=== PATIENT | female | born 1940 | race Caucasian/White ===

== ENCOUNTER → 2019-10-03 17:32 | Outpatient (CLI) | payer MEDICARE, OTHER, SELFPAY ==
[2019-10-03 19:26] LABS: Chloride 102 mmol/L (98-107); Potassium 4.2 mmoL/L (3.5-5.1); Sodium 135 mmol/L (136-145)
[2019-10-03 19:28] LABS: Alanine Aminotransferase 10 U/L (12-78); Aspartate Amino Transferase 26 U/L (14-36); Blood Urea Nitrogen 17 mg/dl (7-17); Estimated Glomerular Filt Rate 43 ml/min (>60); GFR (African American) 53 ML/MIN (>60)
[2019-10-03 19:29] LABS: Albumin Level 3.2 g/dl (3.5-5.0); Albumin/Globulin Ratio 0.9 (1.1-1.8); Alkaline Phosphatase 169 U/L (38-126); Anion Gap 13.2 mEq/L (5-15); Calcium 8.6 mg/dl (8.4-10.2); Carbon Dioxide 24 mmol/L (22.0-30.0); Globulin 3.6 g/dL (1.3-3.2); Glucose 173 mg/dl (74-100); Total Protein,Serum 6.8 g/dl (6.3-8.2)
[2019-10-03 19:47] LABS: T4 (Thyroxine) 10.1 ug/dl (5.53-11.0)
[2019-10-03 19:54] LABS: Hemoglobin A1C 8.6 % (4.0-6.0)
[2019-10-03 20:00] LABS: Thyroid Stimulating Hormone 6.45 uIU/mL (0.465-4.68)
== END ==
PROVIDERS: Visit Provider Family Medicine
DX: I48.91 Unspecified atrial fibrillation (principal); E11.9 Type 2 diabetes mellitus without complications; Z79.4 Long term (current) use of insulin
CPT/HCPCS: 80053; 83036; 84436; 84443

== ENCOUNTER → 2019-10-18 15:45 | Outpatient (CLI) | payer MEDICARE, OTHER, SELFPAY ==
[2019-10-18 15:51] LABS: Chloride 99 mmol/L (98-107); Sodium 136 mmol/L (136-145)
[2019-10-18 15:52] LABS: Potassium 3.9 mmoL/L (3.5-5.1)
[2019-10-18 15:54] LABS: Alanine Aminotransferase 9 U/L (12-78); Albumin Level 3.2 g/dl (3.5-5.0); Albumin/Globulin Ratio 0.9 (1.1-1.8); Alkaline Phosphatase 203 U/L (38-126); Anion Gap 11.9 mEq/L (5-15); Aspartate Amino Transferase 29 U/L (14-36); Bilirubin,Total 1.8 mg/dl (0.2-1.3); Blood Urea Nitrogen 22 mg/dl (7-17); Carbon Dioxide 29 mmol/L (22.0-30.0); Estimated Glomerular Filt Rate 43 ml/min (>60); GFR (African American) 53 ML/MIN (>60); Globulin 3.5 g/dL (1.3-3.2); Total Protein,Serum 6.7 g/dl (6.3-8.2)
[2019-10-18 15:55] LABS: Calcium 8.9 mg/dl (8.4-10.2); Glucose 231 mg/dl (74-100)
== END ==
PROVIDERS: Visit Provider Family Medicine
DX: E03.9 Hypothyroidism, unspecified (principal)
CPT/HCPCS: 80053

== ENCOUNTER 2020-03-13 16:11 | Inpatient (IN) | payer MEDICARE, OTHER, SELFPAY ==
[2020-03-13 16:26] VITALS: BP 144/93; PULSE 95; RESP 20; TEMP 36.8; O2SAT 96; BMI 36.1
[2020-03-13 16:54] VITALS: BP 116/65; PULSE 107; RESP 22; TEMP 36.2; O2SAT 95
[2020-03-13 17:54] LABS: Coronavirus 19 IgG Antibody Negative (Negative); Coronavirus 19 IgM Antibody Negative (Negative)
--- NOTE | 2020-03-13 17:55 | CT_ITS ---
PROCEDURE: CT ABDOMEN PELVIS W CON CLINICAL INDICATION: abdominal pain Left lower quadrant pain with diarrhea COMPARISON: No exams were available for comparison TECHNIQUE: IV Contrast: 75ML Isovue 370 Oral Contrast None Axial images obtained with sagittal and coronal reformats. All CT scans at the facility use one or more dose reduction, viz: automated exposure control, ma/kV adjustment per patient size (including targeted exams where dose is matched to indication, i.e. head), or iterative reconstruction technique. FINDINGS: LOWER THORAX: Dense consolidation collapse of left lower lobe. There is trace right-sided effusion and moderate left-sided effusion. Moderate-sized pericardial effusion noted with pericardium measuring to 2 cm. ABDOMEN & PELVIS: Shrunken liver with nodular contour with hypertrophy of the caudate lobe consistent with cirrhosis. Hepatic steatosis also noted. Moderate volume ascites. The adrenal glands, spleen, have an unremarkable appearance. Pancreas is atrophic. There is a left renal cyst measuring 3.7 cm. Cortical thinning involving both kidneys. There are some small retroperitoneal lymph nodes. Prior cholecystectomy There is thickening of the ascending and transverse colon. No evidence of appendicitis or diverticulitis. The uterus and ovaries are atrophic. There is diffuse subcutaneous edema. No acute bony findings. IMPRESSION: 1. Cirrhosis with a nodular shrunken liver, hypertrophy of the caudate lobe, and moderate volume ascites. 2. Small right pleural effusion and moderate-sized left pleural effusion with left lower lobe consolidation/volume loss. 3. Pericardial effusion. 4. Diffuse anasarca. 5. Diffuse colonic wall thickening of the ascending and transverse colon which could be due to hypoalbuminemia versus colitis. Dictated by: Vasile Zamora MD 03/14/2020 07:31 Vasile Zamora MD in [facility] 03/14/2020 07:31
--- NOTE | 2020-03-13 18:18 | XR_ITS ---
PROCEDURE: XR CHEST 2V CLINICAL HISTORY: chf Congestive heart failure, smoker COMPARISON: No exams were available for comparison FINDINGS: There is moderate cardiomegaly without failure. There is a small left pleural effusion and trace right effusion. No lobar consolidation or collapse. COPD. No acute bony abnormalities. IMPRESSION: The cardiomegaly with bilateral pleural effusions left larger than right with COPD Dictated by: Vasile Zamora MD 03/14/2020 06:30 Vasile Zamora MD in [facility] 03/14/2020 06:30
[2020-03-13 19:16] LABS: Basophils # 0.1 K/mm3 (0-0.2); Basophils % 0.8 % (0.1-2.0); Eosinophils # 0.2 K/mm3 (0.0-0.4); Eosinophils % 2.7 % (0.1-12.0); Hematocrit 42.3 % (37.0-47.0); Hemoglobin 13.3 g/dL (12.2-16.2); Lymphocytes # 0.9 K/mm3 (0.7-4.5); Lymphocytes % 14.1 % (10-50); Mean Corpuscular HGB Conc 31.5 g/dL (31.8-35.4); Mean Corpuscular Hemoglobin 28.2 pg (27.0-31.2); Mean Corpuscular Volume 89.5 fl (81-99); Mean Platelet Volume 8.1 fl (7.4-10.4); Monocytes # 0.7 K/mm3 (0.1-1.0); Monocytes % 10.6 % (1.7-9.3); Neutrophils # 4.6 K/mm3 (1.8-7.8); Neutrophils % 71.9 % (37.0-80.0); Platelet Count 230 K/mm3 (142-424); Red Blood Count 4.73 M/mm3 (4.20-5.40); Red Cell Distribution Width 17.9 % (11.5-17.5); White Blood Count 6.4 K/mm3 (4.8-10.8)
[2020-03-13 19:24] LABS: Ammonia < 9 umol/L (9-30)
[2020-03-13 19:25] LABS: Alanine Aminotransferase 13 U/L (12-78); Albumin Level 3.1 g/dl (3.5-5.0); Albumin/Globulin Ratio 0.7 (1.1-1.8); Alkaline Phosphatase 154 U/L (38-126); Anion Gap 10.8 mEq/L (5-15); Aspartate Amino Transferase 30 U/L (14-36); Bilirubin,Total 3.7 mg/dl (0.2-1.3); Blood Urea Nitrogen 18 mg/dl (7-17); Calcium 8.5 mg/dl (8.4-10.2); Carbon Dioxide 29 mmol/L (22.0-30.0); Chloride 98 mmol/L (98-107); Creatinine Clearance Estimated 66 mL/min (50-200); Estimated Glomerular Filt Rate 61 ml/min (>60); GFR (African American) 73 ML/MIN (>60); Globulin 4.3 g/dL (1.3-3.2); Glucose 120 mg/dl (74-100); Sodium 135 mmol/L (136-145); Total Protein,Serum 7.4 g/dl (6.3-8.2)
[2020-03-13 19:26] LABS: Potassium 2.8 mmoL/L (3.5-5.1)
[2020-03-13 19:32] LABS: INR 1.42 (0.9-1.1); Prothrombin Time 15.3 seconds (9.4-11.8)
[2020-03-13 19:34] LABS: NT Pro Brain Natriuretic Pep. 3430 pg/mL (0-450)
[2020-03-13 19:41] LABS: Procalcitonin 0.138 ng/mL (0.0-2.0)
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
[2020-03-13 19:54] LABS: Lactic Acid 1.3 mmol/L (0.7-2.1)
[2020-03-13 20:00] VITALS: BP 132/88; PULSE 119; RESP 20; TEMP 36.7; O2SAT 99
[2020-03-14] VITALS (9 sets, daily range): BP systolic 113–130; BP diastolic 59–78; PULSE 65–120; RESP 18–22; TEMP 36.5–36.8; O2SAT 94–100; BMI 35.6
[2020-03-14 07:30] LABS: POC Glucose,Bedside 134 (70-110)
--- NOTE | 2020-03-14 07:50 | PC.NURSE ---
Addendum entered by Jennifer Pena RN 03/14/20 07:57: In addidtion, pt has had several incontinent light brown, loose stools this shift. Bowel sounds have been hypoactive in all 4 quads. Abdomen continues to be distended and tender. Original Note: Pt is A&Ox4. Lung sounds diminished t/o. +1 pitting edema noted to BLE. Pt did not tolerate IV K+ this shift and attempted to pull IV out, MD Bass notified. SEE PROVIDER NOTIFICATION. No other acute changes or complains at this time. Will continue to monitor.
[2020-03-14 09:01] LABS: Basophils # 0.1 K/mm3 (0-0.2); Eosinophils # 0.2 K/mm3 (0.0-0.4); Eosinophils % 3.5 % (0.1-12.0); Hemoglobin 13.7 g/dL (12.2-16.2); Lymphocytes # 0.7 K/mm3 (0.7-4.5); Lymphocytes % 14.9 % (10-50); Mean Corpuscular HGB Conc 31.9 g/dL (31.8-35.4); Mean Corpuscular Hemoglobin 29.1 pg (27.0-31.2); Mean Corpuscular Volume 91.2 fl (81-99); Mean Platelet Volume 8.6 fl (7.4-10.4); Monocytes # 0.5 K/mm3 (0.1-1.0); Monocytes % 10.7 % (1.7-9.3); Neutrophils # 3.4 K/mm3 (1.8-7.8); Platelet Count 247 K/mm3 (142-424); Red Blood Count 4.72 M/mm3 (4.20-5.40); Red Cell Distribution Width 18.2 % (11.5-17.5); White Blood Count 4.9 K/mm3 (4.8-10.8)
[2020-03-14 09:04] LABS: Chloride 100 mmol/L (98-107); Potassium 3.3 mmoL/L (3.5-5.1); Sodium 136 mmol/L (136-145)
[2020-03-14 09:06] LABS: Alanine Aminotransferase 11 U/L (12-78); Aspartate Amino Transferase 32 U/L (14-36); Blood Urea Nitrogen 16 mg/dl (7-17); Creatinine Clearance Estimated 64 mL/min (50-200); Estimated Glomerular Filt Rate 54 ml/min (>60); GFR (African American) 65 ML/MIN (>60)
[2020-03-14 09:07] LABS: Albumin Level 3.1 g/dl (3.5-5.0); Albumin/Globulin Ratio 0.7 (1.1-1.8); Alkaline Phosphatase 148 U/L (38-126); Anion Gap 11.3 mEq/L (5-15); Bilirubin,Total 2.5 mg/dl (0.2-1.3); Calcium 8.5 mg/dl (8.4-10.2); Carbon Dioxide 28 mmol/L (22.0-30.0); Globulin 4.2 g/dL (1.3-3.2); Glucose 150 mg/dl (74-100); Total Protein,Serum 7.3 g/dl (6.3-8.2)
[2020-03-14 11:52] LABS: POC Glucose,Bedside 168 (70-110)
--- NOTE | 2020-03-14 12:33 | HMH.PHAVTE ---
[facility] Pharm[facility] VTE Monitoring - Patient Demographics Admission date: 03/13/20 Report Date: 03/14/20 Time: 12:33 Allergies/Adverse Reactions: Patient Allergies ibuprofen Adverse Reaction (Severe, Verified 03/13/20 14:20) Vomiting Sulfa (Sulfonamide Antibiotics) Adverse Reaction (Severe, Verified 03/13/20 14:20) Vomiting tuberculin,PPD,multi-puncture Adverse Reaction (Verified 03/13/20 14:20) Vomiting Height: 1.57 m Weight: 88.025 kg Patient Problems: Current Active Problems Abdominal pain (Acute) Ascites (Acute) SIRS (systemic inflammatory response syndrome) (Acute) Sepsis with organ dysfunction (Acute) Diabetes (Acute) Hypokalemia (Acute) Diverticulosis (Acute) Congestive heart failure (Acute) Elevated bilirubin (Acute) COPD (chronic obstructive pulmonary disease) (Acute) Tobacco abuse (Acute) SBP (spontaneous bacterial peritonitis) (Acute) Incontinence (Acute) Edema due to congestive heart failure (Acute) Afib (Acute) - VTE Risk Labs: VTE Related Lab Results Hgb 13.7 g/dL (12.2-16.2) 03/14/20 08:30 Hct 43.0 % (37.0-47.0) 03/14/20 08:30 Plt Count 247 K/mm3 (142-424) 03/14/20 08:30 PT 15.3 seconds (9.4-11.8) H 03/13/20 18:28 INR 1.42 (0.9-1.1) H 03/13/20 18:28 BUN 16 mg/dl (7-17) 03/14/20 08:30 Creatinine 1.00 mg/dl (0.52-1.04) 03/14/20 08:30 Estimated Creat Clear 64 mL/min (50-200) 03/14/20 08:30 VTE Score: 6 VTE Risk Level: Moderate Risk - Prophylaxis VTE Prophylaxis Ordered?: Yes Types of VTE Prophylaxis: TEDS Knee High Location of Applied Device: Bilateral Lower Extremeties
--- NOTE | 2020-03-14 14:52 | HMH.ACPN2 ---
Internal Medicine - PN: Subj *Date: 03/14/20 *Time: 09:15 Interval history: pt sitting up on the side of the bed states no c/o Exam Vital signs and Labs for Last 24 Hours: Temp Pulse Resp BP Pulse Ox 97.7 F 111 H 19 130/78 97 03/14/20 12:00 03/14/20 12:00 03/14/20 12:00 03/14/20 12:00 03/14/20 12:00 Laboratory Results - last 24 hr 03/13/20 17:10: SARS-CoV-2 IgG Ab (Rapid) Negative, SARS-CoV-2 IgM Ab (Rapid) Negative 03/13/20 18:28: WBC 6.4, RBC 4.73, Hgb 13.3, Hct 42.3, MCV 89.5, MCH 28.2, MCHC 31.5 L, RDW 17.9 H, Plt Count 230, MPV 8.1, Neut % (Auto) 71.9, Lymph % (Auto) 14.1, [place] % (Auto) 10.6 H, Eos % (Auto) 2.7, Baso % (Auto) 0.8, Neut # (Auto) 4.6, Lymph # (Auto) 0.9, [place] # (Auto) 0.7, Eos # (Auto) 0.2, Baso # (Auto) 0.1 03/13/20 18:28: PT 15.3 H, INR 1.42 H 03/13/20 18:28: Sodium 135 L, Potassium 2.8 L*, Chloride 98, Carbon Dioxide 29, Anion Gap 10.8, BUN 18 H, Creatinine 0.90, Estimated Creat Clear 66, Estimated GFR 61, Est GFR ( Amer) 73, Glucose 120 H, Calcium 8.5, Total Bilirubin 3.7 H, AST 30, ALT 13, Alkaline Phosphatase 154 H, Total Protein 7.4, Albumin 3.1 L, Globulin 4.3 H, Albumin/Globulin Ratio 0.7 L 03/13/20 18:28: Ammonia < 9 L 03/13/20 18:28: Procalcitonin 0.138 03/13/20 18:28: NT-Pro-B Natriuret Pep 3430 H 03/13/20 19:35: Lactate 1.3 03/14/20 07:22: POC Glucose 134 H 12/05/20 08:30: WBC 4.9, RBC 4.72, Hgb 13.7, Hct 43.0, MCV 91.2, MCH 29.1, MCHC 31.9, RDW 18.2 H, Plt Count 247, MPV 8.6, Neut % (Auto) 70.0, Lymph % (Auto) 14.9, [place] % (Auto) 10.7 H, Eos % (Auto) 3.5, Baso % (Auto) 1.0, Neut # (Auto) 3.4, Lymph # (Auto) 0.7, [place] # (Auto) 0.5, Eos # (Auto) 0.2, Baso # (Auto) 0.1 03/14/20 08:30: Sodium 136, Potassium 3.3 L, Chloride 100, Carbon Dioxide 28, Anion Gap 11.3, BUN 16, Creatinine 1.00, Estimated Creat Clear 64, Estimated GFR 54 L, Est GFR ( Amer) 65, Glucose 150 H D, Calcium 8.5, Total Bilirubin 2.5 H, AST 32, ALT 11 L, Alkaline Phosphatase 148 H, Total Protein 7.3, Albumin 3.1 L, Globulin 4.2 H, Albumin/Globulin Ratio 0.7 L 03/14/20 11:37: POC Glucose 168 H I & O for Last 24 hours: Intake & Output 03/12/20 03/13/20 03/14/20 03/15/20 11:59 11:59 11:59 11:59 Intake Total 840 / 840 Output Total 500 / 500 Balance 840 / 340 -500 / -500 Weight 194 lb 1 oz - Constitutional no acute distress, obese, chronically ill appearing - *Routine HEENT Exam Head: Present: normocephalic Eye: Present: PERRL ENT: Present: mucous membranes moist - *Routine Neck Exam Present: supple. Absent: lymphadenopathy - *Routine Respiratory Exam Present: CTA bilaterally - *Routine Cardiovascular Exam Present: RRR - *Routine Abdominal Exam Present: soft, normoactive bowel sounds, tenderness, distended - *Routine Extremities Exam Absent: cyanosis, clubbing, edema - *Routine Skin Exam Present: warm. Absent: rash - *Routine Neurological Exam Present: alert, oriented X3 - Routine Psychiatric Exam Present: normal affect Assessment and Plan (1) Afib Status: Acute Qualifiers: Atrial fibrillation type: paroxysmal Qualified Code(s): I48.0 - Paroxysmal atrial fibrillation Category: Medical Code(s): I48.91 - Unspecified atrial fibrillation (2) Edema due to congestive heart failure Status: Acute Category: Medical Code(s): I50.9 - Heart failure, unspecified (3) Incontinence Status: Acute Category: Medical Code(s): R32 - Unspecified urinary incontinence (4) Abdominal pain Status: Acute Category: Medical Code(s): R10.9 - Unspecified abdominal pain (5) Ascites Status: Acute Category: Medical Code(s): R18.8 - Other ascites (6) SIRS (systemic inflammatory response syndrome) Status: Acute Category: Medical Code(s): R65.10 - Systemic inflammatory response syndrome (SIRS) of non-infectious origin without acute organ dysfunction (7) Sepsis with organ dysfunction Status: Acute Category: Medical Code(s): A41.9 - S
[2020-03-14 16:27] LABS: POC Glucose,Bedside 147 (70-110)
--- NOTE | 2020-03-14 16:59 | HMH.PHAINT ---
MEDICATION RECONCILIATION COMPLETED ON PATIENT USING EXTERNAL FILL HISTORY FROM PHARMACY. -ALEX HENDRICKSON, ZIYADD
--- NOTE | 2020-03-14 19:54 | PC.NURSE ---
THIS RN ADMINISTERED FLAGYL IV, PATIENT BEGAN SCREAMING THAT IT WAS EXTREMELY PAINFUL. THIS RN NOTIFIED PHARMACY, MEDICATION HAS BEEN CHANGED TO PO. PATIENT STATED THAT SHE CAN NOT HAVE ANY MEDICATIONS IN HER IV. THIS RN FLUSHED IV, IV IS PATENT AND PATIENT HAD NO ISSUES. PATIENT IS A&O X4, LUNGS INSPIRATORY AND EXPIRATORY WHEEZING HEARD THROUGHOUT. PATIENT UP TO BEDSIDE COMMODE, TOLERATED ALL 3 MEALS. NO OTHER CONCERNS AT THIS TIME.
[2020-03-14 22:33] LABS: POC Glucose,Bedside 179 (70-110)
[2020-03-15] VITALS (9 sets, daily range): BP systolic 111–131; BP diastolic 54–72; PULSE 74–145; RESP 16–19; TEMP 36.7–36.9; O2SAT 94–100; BMI 37.0
[2020-03-15 06:11] LABS: POC Glucose,Bedside 108 (70-110)
[2020-03-15 12:07] LABS: POC Glucose,Bedside 159 (70-110)
--- NOTE | 2020-03-15 16:49 | HMH.ACPN2 ---
Internal Medicine - PN: Subj *Date: 03/15/20 *Time: 11:35 Interval history: pt laying in bed states abd tender Exam Vital signs and Labs for Last 24 Hours: Temp Pulse Resp BP Pulse Ox 98.2 F 116 H 17 130/71 100 03/15/20 16:00 03/15/20 16:00 03/15/20 16:00 03/15/20 16:00 03/15/20 16:00 Laboratory Results - last 24 hr 03/14/20 22:03: POC Glucose 179 H 03/15/20 05:51: POC Glucose 108 03/15/20 11:56: POC Glucose 159 H I & O for Last 24 hours: Intake & Output 03/13/20 03/14/20 03/15/20 03/16/20 11:59 11:59 11:59 11:59 Intake Total 840 / 840 360 / 360 600 / 600 Output Total 500 / 500 Balance 840 / 340 -140 / -140 600 / 600 Weight 194 lb 1 oz 201 lb 8 oz - Constitutional no acute distress, obese - *Routine HEENT Exam Head: Present: normocephalic Eye: Present: PERRL ENT: Present: mucous membranes moist - *Routine Neck Exam Present: supple. Absent: lymphadenopathy - *Routine Respiratory Exam Present: CTA bilaterally - *Routine Cardiovascular Exam Present: RRR - *Routine Abdominal Exam Present: soft, normoactive bowel sounds, tenderness, distended - *Routine Extremities Exam Present: normal capillary refill. Absent: cyanosis, clubbing, edema - *Routine Skin Exam Present: warm. Absent: rash - *Routine Neurological Exam Present: alert, oriented X3 Assessment and Plan (1) Afib Status: Acute Qualifiers: Atrial fibrillation type: paroxysmal Qualified Code(s): I48.0 - Paroxysmal atrial fibrillation Category: Medical Code(s): I48.91 - Unspecified atrial fibrillation (2) Edema due to congestive heart failure Status: Acute Category: Medical Code(s): I50.9 - Heart failure, unspecified (3) Incontinence Status: Acute Category: Medical Code(s): R32 - Unspecified urinary incontinence (4) Abdominal pain Status: Acute Category: Medical Code(s): R10.9 - Unspecified abdominal pain (5) Ascites Status: Acute Category: Medical Code(s): R18.8 - Other ascites (6) SIRS (systemic inflammatory response syndrome) Status: Acute Category: Medical Code(s): R65.10 - Systemic inflammatory response syndrome (SIRS) of non-infectious origin without acute organ dysfunction (7) Sepsis with organ dysfunction Status: Acute Category: Medical Code(s): A41.9 - Sepsis, unspecified organism; R65.20 - Severe sepsis without septic shock (8) Diabetes Status: Acute Category: Medical Code(s): E11.9 - Type 2 diabetes mellitus without complications (9) Hypokalemia Status: Acute Category: Medical Code(s): E87.6 - Hypokalemia (10) Diverticulosis Status: Acute Category: Medical Code(s): K57.90 - Diverticulosis of intestine, part unspecified, without perforation or abscess without bleeding (11) Congestive heart failure Status: Acute Category: Medical Code(s): I50.9 - Heart failure, unspecified (12) Elevated bilirubin Status: Acute Category: Medical Code(s): R17 - Unspecified jaundice (13) COPD (chronic obstructive pulmonary disease) Status: Acute Category: Medical Code(s): J44.9 - Chronic obstructive pulmonary disease, unspecified (14) Tobacco abuse Status: Acute Category: Medical Code(s): Z72.0 - Tobacco use (15) SBP (spontaneous bacterial peritonitis) Status: Acute Category: Medical Code(s): K65.2 - Spontaneous bacterial peritonitis - Assessment and plan all Dx Assessment and Plan for all problems:: rounded with dr yepez all orders per dr yepez
[2020-03-15 17:01] LABS: POC Glucose,Bedside 150 (70-110)
--- NOTE | 2020-03-15 18:36 | PC.NURSE ---
pt has been stable this shift. No issues noted. BLE edema noted. Gets OOB with standby assist. Sinus arrhythmia on tele
[2020-03-15 21:05] LABS: POC Glucose,Bedside 180 (70-110)
[2020-03-16] VITALS (11 sets, daily range): BP systolic 110–133; BP diastolic 58–70; PULSE 82–130; RESP 16–22; TEMP 36.6–37; O2SAT 94–100; BMI 36.5
--- NOTE | 2020-03-16 03:48 | PC.NURSE ---
Pt. abd noted to be large and round with llq tenderness reported. Pt. denies n/v/d or dizziness.
[2020-03-16 05:14] LABS: POC Glucose,Bedside 127 (70-110)
[2020-03-16 07:39] LABS: Basophils % 0.7 % (0.1-2.0); Eosinophils # 0.1 K/mm3 (0.0-0.4); Eosinophils % 2.2 % (0.1-12.0); Hemoglobin 12.9 g/dL (12.2-16.2); Lymphocytes # 0.8 K/mm3 (0.7-4.5); Lymphocytes % 15.4 % (10-50); Mean Corpuscular HGB Conc 31.5 g/dL (31.8-35.4); Mean Corpuscular Hemoglobin 28.8 pg (27.0-31.2); Mean Corpuscular Volume 91.2 fl (81-99); Mean Platelet Volume 8.4 fl (7.4-10.4); Monocytes # 0.6 K/mm3 (0.1-1.0); Monocytes % 10.2 % (1.7-9.3); Neutrophils # 3.9 K/mm3 (1.8-7.8); Neutrophils % 71.6 % (37.0-80.0); Platelet Count 255 K/mm3 (142-424); Red Blood Count 4.49 M/mm3 (4.20-5.40); Red Cell Distribution Width 17.9 % (11.5-17.5); White Blood Count 5.5 K/mm3 (4.8-10.8)
[2020-03-16 07:49] LABS: Chloride 97 mmol/L (98-107); Sodium 134 mmol/L (136-145)
[2020-03-16 07:50] LABS: Potassium 3.6 mmoL/L (3.5-5.1)
[2020-03-16 07:52] LABS: Anion Gap 9.6 mEq/L (5-15); Blood Urea Nitrogen 17 mg/dl (7-17); Carbon Dioxide 31 mmol/L (22.0-30.0); Creatinine Clearance Estimated 60 mL/min (50-200); Estimated Glomerular Filt Rate 48 ml/min (>60); GFR (African American) 58 ML/MIN (>60)
[2020-03-16 07:53] LABS: Calcium 8.4 mg/dl (8.4-10.2); Glucose 130 mg/dl (74-100)
--- NOTE | 2020-03-16 09:32 | DIET.NUTRFU ---
Pt requested liberalized diet and states at home I eat whatever I want. Diet liberalized from diabetic/no added salt to just no added salt and pt educated on making carbohydrate consistent meal choices/avoiding high sugar foods/beverages. Pt educated on importance low sodium diet.
--- NOTE | 2020-03-16 10:24 | US_ITS ---
PROCEDURE: US PARACENTESIS CLINICAL INDICATION: peritonitis COMPARISON: No exams were available for comparison TECHNIQUE: Informed consent was obtain prior to procedure. After appropriate Time out, under aseptic conditions and local anesthesia with 1% buffered lidocaine using sonographic guidance a 6 Serbian Ipfw-O-Abltsawn catheter was inserted into the largest pocket of fluid localized in the right lower quadrant. Approximately 2500 mL volume of Serosanguineous fluid was drained. The patient tolerated the procedure well and left the radiology suite in stable condition. FINDINGS: Mild amount of ascites. IMPRESSION: Successful sonographic guided paracentesis without complication. Dictated by: Vasile Zamora MD 03/16/2020 17:42 Vasile Zamora MD in [place] 03/16/2020 17:42
[2020-03-16 11:04] LABS: POC Glucose,Bedside 131 (70-110)
--- NOTE | 2020-03-16 12:53 | HMH.ACPN2 ---
Internal Medicine - PN: Subj *Date: 03/17/20 *Time: 06:41 Interval history: doing better - less abd pain but has ascites Exam Vital signs and Labs for Last 24 Hours: Temp Pulse Resp BP Pulse Ox 98.4 F 125 H 22 116/67 96 03/16/20 11:27 03/16/20 11:27 03/16/20 11:27 03/16/20 11:27 03/16/20 11:27 Laboratory Results - last 24 hr 03/15/20 16:49: POC Glucose 150 H 03/15/20 20:45: POC Glucose 180 H 03/16/20 05:06: POC Glucose 127 H 03/16/20 06:37: WBC 5.5, RBC 4.49, Hgb 12.9, Hct 41.0, MCV 91.2, MCH 28.8, MCHC 31.5 L, RDW 17.9 H, Plt Count 255, MPV 8.4, Neut % (Auto) 71.6, Lymph % (Auto) 15.4, [place] % (Auto) 10.2 H, Eos % (Auto) 2.2, Baso % (Auto) 0.7, Neut # (Auto) 3.9, Lymph # (Auto) 0.8, [place] # (Auto) 0.6, Eos # (Auto) 0.1, Baso # (Auto) 0.0 03/16/20 06:37: Sodium 134 L, Potassium 3.6, Chloride 97 L, Carbon Dioxide 31 H, Anion Gap 9.6, BUN 17, Creatinine 1.10 H, Estimated Creat Clear 60, Estimated GFR 48 L, Est GFR ( Amer) 58 L, Glucose 130 H, Calcium 8.4 03/16/20 10:55: POC Glucose 131 H I & O for Last 24 hours: Intake & Output 03/14/20 03/15/20 03/16/20 03/17/20 11:59 11:59 11:59 11:59 Intake Total 840 / 840 360 / 360 1080 / 1080 Output Total 500 / 500 Balance 840 / 340 -140 / -140 1080 / 1080 Weight 194 lb 1 oz 201 lb 8 oz 198 lb 8 oz Microbiology Reports for the Last 24 Hours: Microbiology 03/13/20 18:28 Blood Blood Culture - Preliminary NO GROWTH AFTER 48 HOURS 03/13/20 18:28 Blood Blood Culture - Preliminary NO GROWTH AFTER 48 HOURS - Constitutional no acute distress - *Routine HEENT Exam Head: Present: normocephalic Eye: Present: EOMI, PERRL. Absent: conjunctival icterus ENT: Present: mucous membranes dry - *Routine Neck Exam Present: supple. Absent: JVD - *Routine Respiratory Exam Present: decreased breath sounds - *Routine Cardiovascular Exam Present: RRR, murmur - *Routine Abdominal Exam Present: soft, other (ascites) - *Routine Extremities Exam Absent: calf tenderness - *Routine Skin Exam Present: intact - *Routine Neurological Exam Present: alert, CN II-XII intact - Routine Psychiatric Exam Present: normal affect Assessment and Plan (1) Afib Status: Acute Qualifiers: Atrial fibrillation type: paroxysmal Qualified Code(s): I48.0 - Paroxysmal atrial fibrillation Category: Medical Code(s): I48.91 - Unspecified atrial fibrillation (2) Edema due to congestive heart failure Status: Acute Category: Medical Code(s): I50.9 - Heart failure, unspecified (3) Incontinence Status: Acute Category: Medical Code(s): R32 - Unspecified urinary incontinence (4) Abdominal pain Status: Acute Category: Medical Code(s): R10.9 - Unspecified abdominal pain (5) Ascites Status: Acute Category: Medical Code(s): R18.8 - Other ascites (6) SIRS (systemic inflammatory response syndrome) Status: Acute Category: Medical Code(s): R65.10 - Systemic inflammatory response syndrome (SIRS) of non-infectious origin without acute organ dysfunction (7) Sepsis with organ dysfunction Status: Acute Category: Medical Code(s): A41.9 - Sepsis, unspecified organism; R65.20 - Severe sepsis without septic shock (8) Diabetes Status: Acute Category: Medical Code(s): E11.9 - Type 2 diabetes mellitus without complications (9) Hypokalemia Status: Acute Category: Medical Code(s): E87.6 - Hypokalemia (10) Diverticulosis Status: Acute Category: Medical Code(s): K57.90 - Diverticulosis of intestine, part unspecified, without perforation or abscess without bleeding (11) Congestive heart failure Status: Acute Category: Medical Code(s): I50.9 - Heart failure, unspecified (12) Elevated bilirubin Status: Acute Category: Medical Code(s): R17 - Unspecified jaundice (13) COPD (chronic obstructive pulmonary disease) Status: Acute C
--- NOTE | 2020-03-16 13:25 | PC.NURSE ---
Patient's family and Dr. Bass at bedside. Patient's family telling patient about her youngest daughter passing away this morning. Patient started to cry and scream. Per Dr. Bass give patient Ativan 1mg IV x 1 dose now.
--- NOTE | 2020-03-16 13:30 | HMH.GEROBB ---
Gastroenterology Consult Consult:: Gastroenterology Consultation Date of Service-March 16, 2020 History of Present Illness: Mrs. Feliciano is a 79-year-old female who presented with abdominal pain and abdominal distention. Initially she did have rebound tenderness. She also has a history of cirrhosis and has struggled with some ascites. She was diagnosed with SBP (spontaneous bacterial peritonitis) and did receive antibiotics. The patient had been on anticoagulation with Eliquis and thus she did not have paracentesis. The patient states that she drank alcohol heavily 20 to 30 years ago but has not done this recently. She was given torsemide by her hat ironer and went from 100 mg back to 50 mg. She has reduced sodium/salt in her diet. She reports no family history of liver disease. Her lab work initially did show white blood cell count of 6.4 without anemia. Her creatinine was 0.9. She did have a total bilirubin of 3.7, alkaline phosphatase 154, AST 30 and ALT 13. Past Medical History: 1. Atrial fibrillation 2. Cardiomyopathy 3. COPD 4. Hypertension 5. Type 2 diabetes mellitus Past Surgical History: 1. Appendectomy 2. Cholecystectomy 3. Tubal ligation Medications: (Home medication) 1. Apixaban 2. Insulin 3. Metoprolol 4. Omeprazole 5. MiraLAX 6. Torsemide 7. Sitagliptin 8. Levothyroxine 9. Albuterol ALLERGIES: Sulfa drugs, PPD, ibuprofen Social History: The patient does smoke 1 pack of cigarettes a day. She has not used alcohol in more than 30 years. She is retired and . She has children. Family History: Noncontributory Review of Systems: See chart Physical Examination: Gen.: The patient is a well-developed well-nourished individual in no acute distress HEENT: Normocephalic/atraumatic extraocular movements are intact anicteric Neck: Supple no lymphadenopathy Chest: Dull in the bases otherwise clear Cardiovascular: Irregularly irregular Abdomen: Abdominal distention with some tenderness generalized and ballotable liver/enlarged spleen Extremities: 1+ edema Labs: See labs in chart, normal ammonia Radiology: Impression/Plan: 1. Chronic liver disease with ascites and spontaneous bacterial peritonitis. Certainly this is largely presumptive and in this case with her anticoagulation I would most definitely agree with empiric therapy. The patient is improving. At this point, I would recommend proceeding with diagnostic/therapeutic paracentesis. I would send ascitic fluid for culture, cell count and differential, protein and albumin. I would obtain serum to ascites albumin gradient (SAAG). It was very good she got started on the antibiotic early since delayed diagnosis and treatment does increase mortality. Preferably cefotaxime 2 g every 8 hours is the treatment of choice. Ceftriaxone (Rocephin) is preventive but not the treatment of choice. Alternatively, a third generation cephalosporin or fluoroquinolone can be utilized. A course of 5 days treatment is appropriate. The patient does not have renal dysfunction but often we do use albumin with renal dysfunction. This does not appear to be secondary bacterial peritonitis. Upon discharge, I would continue a good diuretic with low-sodium diet. I would at least do spironolactone 100 mg p.o. twice daily. Proton pump inhibitors have been associated with an increased risk of SBP and the patient has been on omeprazole. I would restrict this if possible. Also, antibiotic prophylaxis is now only indicated in persons with concomitant GI variceal bleeding or in persons that have multiple episodes of SBP. It is also utilized in patients with renal dysfunction or if the ascitic fluid protein is less than 1.5 g/dL. Prophylactic antibiotics include Bactrim or Cipro or norfloxacin.
--- NOTE | 2020-03-16 14:17 | CA_ITS ---
APPROVED REPORT EXAM: Comprehensive 2D, Doppler, and color-flow Echocardiogram Block Feeder: Gracy Santiago CRT Ht: 5 ft 1 in Wt: 198lbs BSA: 1.88 BP: 116/67 mmHg Indications: COPD, Shortness of Breath, Diabetes, Hypertension/HDD, [place] pleural eff, peritonitis, AFib 2D Dimensions LVOT 1.62 cm (M/F) 1.5-2.5 M-Mode Dimensions RVDd 3.88 cm (0.9-2.6) LA Diam 4.50 cm (1.9-4.0) LVDd 4.51 cm (3.5-5.7) Ao Diam 3.36 cm (2.0-3.7) LVDs 3.26 cm (3.5-5.7) IVSd 1.12 cm (0.6-1.1) PWd 1.07 cm (0.6-1.1) EF (Teich) 53.90% FS 27.70% EDV (Teich) 92.90 mL ESV (Teich) 42.80 mL LV Diastology E Decel Time 150.00 (160-240 msec) E/A Ratio 5.26 Mitral Valve MV E Max Reji. 93.00 (40-130 cm/s) MV A Velocity 18.00 (40-130 cm/s) E/A Ratio 5.26 MV Decel. Time 150.00 (160-240 ms) MV PHT 44.00 ms Pulmonary Valve PV Peak Velocity 80.00 (50-150 cm/s) Tricuspid Valve TR P. Velocity 236.00 cm/s RAP Estimate 10.00 mmHg RVSP 32.30 mmHg Left Ventricle Technically difficult study, left atrium is moderately enlarged, left ventricle is normal size, mild concentric left ventricular hypertrophy, visually estimated ejection fraction 55% with no regional wall motion abnormality, diastolic parameters are inconclusive. Right Ventricle Right atrium and right ventricle moderately enlarged, contractility of the right ventricle is normal. Aortic Valve Aortic valve is thickened and calcified leaflet chordae display good mobility, there is no aortic stenosis or aortic insufficiency. Mitral Valve Mitral valve leaflets are minimally thickened, there is mild mitral regurgitation. Tricuspid Valve Tricuspid valve is grossly normal, there is mild tricuspid regurgitation, calculated right ventricular systolic pressure 33 mmHg. Pulmonic Valve Pulmonic valve is poorly visualized. Great Vessels Aortic root is normal size. Pericardium There is moderate size pericardial effusion noted without Doppler evidence of obvious tamponade. Inferior vena cava is not well visualized. Conclusion 1. Technically difficult study. Biatrial enlargement, normal left ventricular size, mild concentric left ventricular hypertrophy, visually estimated ejection fraction 55% with no regional wall motion abnormality, diastolic parameters are inconclusive. 2. Moderately enlarged right ventricle with normal contractility. 3. Thickened and calcified aortic valve without aortic stenosis or aortic insufficiency. 4. Mild mitral and tricuspid regurgitation, calculated right ventricular systolic pressure 33 mmHg. 5. Moderate-sized pericardial effusion without obvious Doppler evidence of tamponade. Inferior vena cava is not well visualized. Electronically signed by : Miguel A Carlson, 03/18/2020 06:21:22
--- NOTE | 2020-03-16 14:19 | HMH.CNCARD ---
History of Present Illness Consult date: 03/16/20 Requesting physician: Humble Bass Consult reason: shortness of breath Chief complaint: abd pain and shortness of breath Additional Medical History:: 1. Abdominal pain (03/15/2020) a. Ascites noted. b. Paracentesis (03/16/2020) 2. PAF a. Eliquis 3. COPD a. Continues to smoke 1ppd over 30 years 4. Congestive heart failure 5. Bilateral Plueral effusion (03/15/2020) 6. Diabetes History of present illness: 79 year old female presented to the ED (03/14/2020)with lower abdominal pain for the past few weeks. Pt stated that the abdominal pain has become worse over the past few days. Pt stated increase shortness of breath with the abdominal pain. Denies chest pain, tightness or pressure. Slight swelling of the lower extremities noted. Pt does have history of atrial fibrillation. A/C [place]. History of COPD and CHF. Pt stated that she does have a Front Desk Coordinator that she sees regularly. Pt noted with abdominal ascites. Pt underwent paracentesis today. Almost 2 liters taken off (per Dr. Bass). Pt received bad news today that her daughter had suddenly today. Pt very tearful during this assessment. Upon this assessment, pt denies chest pain, tightness or pressure. Denies shortness of breath. Denies fever, nausea or vomiting. Discussed plan of care with Dr. Rolle. Recommend obtaining echocardiogram to assess LV function and valve status. Will defer abdominal pain and ascites treatment to PCP. Will defer change in medications at this time pending on echocardiogram results. Will continue to monitor pt. Thank you for letting cardiology participate in the care of this pt. [facility] History I have reviewed the patient's past medical history: Yes Medical History: Reports:: Asthma, Atrial Fibrillation, Congestive Heart Failure, Chronic Obstructive Pulmonary Disease (COPD), Diabetes Mellitus Type 2, Hypertension Denies:: Cancer, Diabetes Mellitus Type 1, MRSA *Have you ever received a pneumonia vaccine?: No *Have you received a flu vaccine this season?: No Other Medical History: Reports: Arthritis, Hypothyroidism Other Surgeries: Yes: Appendectomy, Cholecystectomy, Colonoscopy, Skin Cancer Excision, Tubal Ligation Amputation: No Fractures: No - *Social History Last grade of school completed: 11th or 12th Smoking Status: Current every day smoker Tobacco Type: cigarettes # Packs/Day (cigarettes): 1 Alcohol Intake: never Substance Use Type: denies use *Occupational Status:: disabled Housing: house Household Members: children *Travel in the last 8 weeks: None Family Hx:: Non-contributory Meds Home Medications Medication Instructions Recorded Confirmed Type apixaban 5 mg tablet 5 mg PO BID tab 10/03/19 03/14/20 History insulin aspart U-100 100 unit/mL 10 unit SQ TID 10/03/19 03/14/20 History (3 mL) subcutaneous pen omeprazole 20 mg capsule,delayed 20 mg PO BID cap 10/03/19 03/14/20 History release torsemide 100 mg tablet 100 mg PO DAILY #30 tab 10/03/19 03/14/20 Rx Albuterol Sulfate [Albuterol 2.5 mg IH Q4-6H 03/14/20 03/14/20 History 0.083% 2.5mg/3mL neb] Albuterol Sulfate [Proair 1 puff IH Q4-6H PRN 03/14/20 03/14/20 History Digihaler] Insulin Degludec [Tresiba 100 unit SQ HS 03/14/20 03/14/20 History FlexTouch U-100] Levothyroxine Sodium [Tirosint] 200 mcg PO DAILY 03/14/20 03/14/20 History Sitagliptin Phosphate [Januvia 50 mg PO DAILY 03/14/20 03/14/20 History 50mg Tablet] Metoprolol Succinate [Metoprolol 50 mg PO DAILY 03/16/20 03/16/20 History Succinate 50mg Tablet*] Allergies Allergy/AdvReac Type Severity Reaction Status Date / Time ibuprofen AdvReac Severe Vomiting Verified 03/13/20 14:20 Sulfa (Sulfonamide AdvReac Severe Vomiting Verified 03/13/20 14:20 Antibiotics) tuberculin,PPD,multi-puncture AdvReac Vomiting Verified 03/13/20 14:20 Exam Vital signs and Labs for Last 24 Hours: Temp Pulse Resp BP Puls
[2020-03-16 17:27] LABS: POC Glucose,Bedside 169 (70-110)
--- NOTE | 2020-03-16 17:45 | PC.NURSE ---
Patient sitting up in bed eating super. No complaints voiced at this time. no sign or symptoms of distress noted at this time.
[2020-03-16 21:31] LABS: POC Glucose,Bedside 180 (70-110)
[2020-03-17] VITALS: PULSE 140
--- NOTE | 2020-03-17 02:54 | PC.NURSE ---
A&OX4. PT HAS TOLERATED 2L NC WELL THROUGHOUT SHIFT. RESPIRATIONS REGULAR AND UNLABORED. DIMINISHED LUNG SOUNDS NOTED THROUGHOUT. NO COUGH NOTED. ACTIVE BOWEL SOUNDS HEARD IN ALL 4 QUADRANTS. SOFT AND NONTENDER ABDOMEN. NO BM THUS FAR. PT USES A 1 PERSON ASSIST TO USE THE RESTROOM AND MOVES INDEPENDENTLY IN BED. CLEAR YELLOW URINE NOTED. PT HAS TO BE CHANGED AT TIMES AND HAS BEEN CHANGED NEEDED. PT HAS SLEPT OFF AND ON. NO REPORTS OF PAIN. HAND TERADATA DEVELOPER EQUAL. +2 PULSES NOTED THROUGHOUT. CALL LIGHT WITHIN REACH. BED IN LOWEST POSITION. VSS. WILL CONTINUE TO MONITOR.
[2020-03-17 04:00] VITALS: BP 112/77; PULSE 122; PULSE 130; RESP 24; TEMP 37.2; O2SAT 94
[2020-03-17 05:33] VITALS: BMI 35.2
[2020-03-17 05:59] LABS: POC Glucose,Bedside 167 (70-110)
[2020-03-17 06:18] VITALS: PULSE 112; PULSE 114; O2SAT 95
[2020-03-17 07:26] LABS: Chloride 96 mmol/L (98-107); Sodium 135 mmol/L (136-145)
[2020-03-17 07:27] LABS: Potassium 3.6 mmoL/L (3.5-5.1)
[2020-03-17 07:29] LABS: Blood Urea Nitrogen 16 mg/dl (7-17); Creatinine Clearance Estimated 52 mL/min (50-200); Estimated Glomerular Filt Rate 43 ml/min (>60); GFR (African American) 52 ML/MIN (>60)
[2020-03-17 07:30] LABS: Anion Gap 8.6 mEq/L (5-15); Calcium 8.2 mg/dl (8.4-10.2); Carbon Dioxide 34 mmol/L (22.0-30.0); Glucose 159 mg/dl (74-100)
[2020-03-17 07:32] LABS: Basophils # 0.1 K/mm3 (0-0.2); Eosinophils # 0.1 K/mm3 (0.0-0.4); Eosinophils % 1.4 % (0.1-12.0); Hematocrit 39.8 % (37.0-47.0); Hemoglobin 12.8 g/dL (12.2-16.2); Lymphocytes # 0.8 K/mm3 (0.7-4.5); Lymphocytes % 13.9 % (10-50); Mean Corpuscular HGB Conc 32.1 g/dL (31.8-35.4); Mean Corpuscular Hemoglobin 29.5 pg (27.0-31.2); Mean Corpuscular Volume 91.9 fl (81-99); Monocytes # 0.7 K/mm3 (0.1-1.0); Neutrophils # 4.3 K/mm3 (1.8-7.8); Neutrophils % 71.7 % (37.0-80.0); Platelet Count 258 K/mm3 (142-424); Red Blood Count 4.33 M/mm3 (4.20-5.40); Red Cell Distribution Width 17.9 % (11.5-17.5)
[2020-03-17 08:00] VITALS: BP 120/69; PULSE 61; RESP 18; TEMP 36.9; O2SAT 96
--- NOTE | 2020-03-17 08:05 | PC.NURSE ---
reported to nik kim aprn that this morning patient heart rate has been 130-160s. patient has no complaints. over weekend it had been noted her heart rate had been elevated when she was up between 120-140s, but didn't usually sustain. noted a cardiology consult was done yesterday. patient is in afib.
--- NOTE | 2020-03-17 08:24 | PC.NURSE ---
nik kim aprn relayed to dr yepez about patient heart rate was elevated at 130-140s has not had metoprolol while here. stated to get an ekg on patient
--- NOTE | 2020-03-17 08:39 | ECG_ITS ---
APPROVED REPORT Exam: Resting ECG HR:131 bpm ECG Measurements Heart Rate 131 AXES QRSd 128 QRS 99 QT 346 T 97 QTc 510 Conclusion Atrial fibrillation with rapid ventricular response Right bundle branch block Anteroseptal infarct, age undetermined Abnormal ECG Electronically signed by : Cornelio Mason, 03/17/2020 19:34:44
--- NOTE | 2020-03-17 09:47 | HMH.PNCARD ---
Subjective Date: 03/17/20 Time: 09:00 Principal diagnosis: Bacterial peritonitis Interval history: 80-year-old female consulted by cardiology for atrial fibrillation. Patient was admitted to [facility] with bacterial peritonitis. Patient did undergo a paracentesis yesterday in which 250 mL was drained of serosanguineous fluid. Patient does have mild amount of ascites. Patient denies chest pain, tightness or pressure. Shortness of breath. She is tolerating oxygen at 2 L by nasal cannula. Slight swelling of the lower extremities noted. Patient is dangling her feet over the bed. Patient denies abdominal pain. EKG was performed this morning. EKG revealed atrial fibrillation with RVR with a heart rate of 131 bpm. Throughout the night patient's heart rate had ranged from 112 beats to 130 bpm. On admission to the hospital, her metoprolol had been stopped. Along with her Eliquis. Would recommend to restart the metoprolol 50 mg once a day and Eliquis 5 mg twice daily due to atrial fibrillation with the RVR. Echocardiogram was obtained yesterday. He reports reveals EF is 55 or greater percentage with a small pericardial effusion. No tamponade was noted. Ultimate goal for patient is to return home today due to the of her daughter yesterday. Patient states that she has arrangements made for her daughter. Patient does follow with another rn surgical pcu Dr. Perez in [facility]. Patient states she last saw Dr. Perez 6 months ago. Patient stated at one time she did have a cardioversion due to her atrial fibrillation. Cardioversion was unsuccessful. Patient states she was told that a cardioversion would not work for her A. fib. Discussed plan of care with Dr. Rolle. Recommend to restart metoprolol 50 mg daily and Eliquis 5 mg twice daily for heart rate control and atrial fibrillation. Thank you for letting cardiology participate in the care of this patient. Exam Vital signs and Labs for Last 24 Hours: Temp Pulse Resp BP Pulse Ox 98.5 F 61 18 120/69 96 03/17/20 08:00 03/17/20 08:00 03/17/20 08:00 03/17/20 08:00 03/17/20 08:00 Laboratory Results - last 24 hr 03/16/20 10:55: POC Glucose 131 H 03/16/20 17:16: POC Glucose 169 H 03/16/20 21:13: POC Glucose 180 H 03/17/20 05:52: POC Glucose 167 H 03/17/20 06:32: WBC 6.0, RBC 4.33, Hgb 12.8, Hct 39.8, MCV 91.9, MCH 29.5, MCHC 32.1, RDW 17.9 H, Plt Count 258, MPV 8.0, Neut % (Auto) 71.7, Lymph % (Auto) 13.9, [place] % (Auto) 12.0 H, Eos % (Auto) 1.4, Baso % (Auto) 1.0, Neut # (Auto) 4.3, Lymph # (Auto) 0.8, [place] # (Auto) 0.7, Eos # (Auto) 0.1, Baso # (Auto) 0.1 03/17/20 06:32: Sodium 135 L, Potassium 3.6, Chloride 96 L, Carbon Dioxide 34 H, Anion Gap 8.6, BUN 16, Creatinine 1.20 H, Estimated Creat Clear 52, Estimated GFR 43 L, Est GFR ( Amer) 52 L, Glucose 159 H D, Calcium 8.2 L I & O for Last 24 hours: Intake & Output 03/14/20 03/15/20 03/16/20 03/17/20 23:59 23:59 23:59 23:59 Intake Total 1080 / 1080 720 / 720 720 / 720 100 / 100 Output Total 500 / 500 Balance 580 / 580 720 / 720 720 / 720 100 / 100 Weight 194 lb 1 oz 201 lb 8 oz 198 lb 8 oz 191 lb 7 oz Microbiology Reports for the Last 24 Hours: Microbiology 03/16/20 12:30 Ascites Fluid - Peritoneal Gram Stain - Final - Constitutional mild distress, cooperative - *Routine HEENT Exam Head: Present: normocephalic ENT: Present: mucous membranes moist - *Routine Neck Exam Present: supple, full ROM, normal carotid upstroke. Absent: JVD, carotid bruit, lymphadenopathy - Routine Chest/Breast/Axilla Exam Chest wall: Present: tenderness. Absent: mass, pacemaker - *Routine Respiratory Exam Present: accessory muscle use, CTA bilaterally. Absent: wheezes, crackles - *Routine Cardiovascular Exam Present: RRR, Normal S1, Normal S2, tachycardia, irregular rhythm, irregularly irregular. Absent: murmur, click, JVD - *Routine Abdominal Exam Present: soft, no
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
--- NOTE | 2020-03-17 10:12 | SW/DCPLANNER ---
I have spoke with this patient regarding discharge plans. Patient stated that she resides at home with her daughter (Debora). Patient stated that she is returning back home with her daughter. Patient stated that she has home O2, walker, BSC and does not have any needs at home at this time. Patient will discharge home later today.
--- NOTE | 2020-03-17 10:27 | PC.NURSE ---
cardiology and primary made aware of patient heart rate and ekg. stated they would place orders
== END 2020-03-17 12:10 | disposition home or self-care (01) | DRG 372 ==
PROVIDERS: Nurse Practitioner Family; Admitting Provider Family Medicine; PCP Family Medicine; Visit Provider Family Medicine
DX: K65.2 Spontaneous bacterial peritonitis (principal); I42.9 Cardiomyopathy, unspecified; I48.0 Paroxysmal atrial fibrillation; I11.0 Hypertensive heart disease with heart failure; I50.9 Heart failure, unspecified; J44.9 Chronic obstructive pulmonary disease, unspecified; Z99.81 Dependence on supplemental oxygen; E87.6 Hypokalemia; R32 Unspecified urinary incontinence; K57.90 Diverticulosis of intestine, part unspecified, without perforation or abscess without bleeding; E11.9 Type 2 diabetes mellitus without complications; Z79.4 Long term (current) use of insulin; Z79.01 Long term (current) use of anticoagulants; K70.31 Alcoholic cirrhosis of liver with ascites; F10.11 Alcohol abuse, in remission
CPT/HCPCS: 49083; 36415; 71046; 74177; 80048; 80053; 82140; 82962; 83605; 83880; 84145; 85025; 85610; 86328; 87040; 87070; 87205; 93005; 93306; 94640; Q9967

== ENCOUNTER → 2020-10-05 17:39 | Outpatient (CLI) | payer MEDICARE, OTHER, SELFPAY ==
[2020-10-05 18:10] LABS: Alanine Aminotransferase 17 U/L (12-78); Albumin Level 3.6 g/dl (3.5-5.0); Alkaline Phosphatase 230 U/L (38-126); Anion Gap 14.4 mEq/L (5-15); Aspartate Amino Transferase 33 U/L (14-36); Bilirubin,Total 0.9 mg/dl (0.2-1.3); Blood Urea Nitrogen 20 mg/dl (7-17); Calcium 9.1 mg/dl (8.4-10.2); Carbon Dioxide 25 mmol/L (22.0-30.0); Chloride 99 mmol/L (98-107); Estimated Glomerular Filt Rate 69 ml/min (>60); GFR (African American) 84 ML/MIN (>60); Globulin 3.6 g/dL (1.3-3.2); Lipase 34 U/L (23-300); Potassium 4.4 mmoL/L (3.5-5.1); Sodium 134 mmol/L (136-145); Total Protein,Serum 7.2 g/dl (6.3-8.2)
[2020-10-05 18:35] LABS: Basophils # 0.1 K/mm3 (0-0.2); Basophils % 1.6 % (0.1-2.0); Eosinophils # 0.2 K/mm3 (0.0-0.4); Eosinophils % 3.8 % (0.1-12.0); Hematocrit 40.5 % (37.0-47.0); Hemoglobin 13.4 g/dL (12.2-16.2); Lymphocytes # 1.2 K/mm3 (0.7-4.5); Lymphocytes % 20.4 % (10-50); Mean Corpuscular HGB Conc 33.2 g/dL (31.8-35.4); Mean Corpuscular Hemoglobin 29.3 pg (27.0-31.2); Mean Corpuscular Volume 88.5 fl (81-99); Mean Platelet Volume 9.1 fl (7.4-10.4); Monocytes # 0.4 K/mm3 (0.1-1.0); Monocytes % 7.1 % (1.7-9.3); Neutrophils # 3.9 K/mm3 (1.8-7.8); Neutrophils % 67.2 % (37.0-80.0); Platelet Count 210 K/mm3 (142-424); Red Blood Count 4.58 M/mm3 (4.20-5.40); Red Cell Distribution Width 14.7 % (11.5-17.5); White Blood Count 5.9 K/mm3 (4.8-10.8)
[2020-10-05 18:41] LABS: Thyroid Stimulating Hormone 0.27 uIU/mL (0.465-4.68)
[2020-10-05 19:14] LABS: Glucose 404 mg/dl (74-100)
[2020-10-05 19:37] LABS: Hemoglobin A1C 9.3 % (4.0-6.0)
== END ==
PROVIDERS: Visit Provider Family Medicine
DX: E11.9 Type 2 diabetes mellitus without complications (principal); Z79.4 Long term (current) use of insulin
CPT/HCPCS: 80053; 83036; 83690; 84443; 85025

== ENCOUNTER 2021-07-07 12:42 | Emergency (ER) | payer MEDICARE, OTHER, SELFPAY ==
[2021-07-07] VITALS (16 sets, daily range): BP systolic 77–117; BP diastolic 36–69; PULSE 62–117; RESP 16–20; TEMP 36.8–37; O2SAT 93–100; BMI 31.6
--- NOTE | 2021-07-07 13:00 | PC.NURSE ---
Daughter advises that B/P is normally low. Notified MD that pt pressure of 88/45 was normal for her
[2021-07-07 13:28] LABS: Basophils % 0.6 % (0.1-2.0); Eosinophils # 0.1 K/mm3 (0.0-0.4); Eosinophils % 2.2 % (0.1-12.0); Hematocrit 34.4 % (37.0-47.0); Hemoglobin 11.1 g/dL (12.2-16.2); Lymphocytes # 0.9 K/mm3 (0.7-4.5); Lymphocytes % 17.9 % (10-50); Mean Corpuscular HGB Conc 32.4 g/dL (31.8-35.4); Mean Corpuscular Hemoglobin 28.7 pg (27.0-31.2); Mean Corpuscular Volume 88.5 fl (81-99); Mean Platelet Volume 8.3 fl (7.4-10.4); Monocytes # 0.5 K/mm3 (0.1-1.0); Monocytes % 9.5 % (1.7-9.3); Neutrophils # 3.4 K/mm3 (1.8-7.8); Neutrophils % 69.8 % (37.0-80.0); Platelet Count 271 K/mm3 (142-424); Red Blood Count 3.88 M/mm3 (4.20-5.40); Red Cell Distribution Width 17.9 % (11.5-17.5); White Blood Count 4.9 K/mm3 (4.8-10.8)
[2021-07-07 13:30] LABS: Chloride 100 mmol/L (98-107); Potassium 3.6 mmoL/L (3.5-5.1); Sodium 134 mmol/L (136-145)
[2021-07-07 13:32] LABS: Alanine Aminotransferase 16 U/L (12-78); Aspartate Amino Transferase 25 U/L (14-36); Blood Urea Nitrogen 13 mg/dl (7-17); Creatinine Clearance Estimated 12 mL/min (50-200); Estimated Glomerular Filt Rate 9 ml/min (>60); GFR (African American) 11 ML/MIN (>60)
[2021-07-07 13:33] LABS: Albumin Level 2.3 g/dl (3.5-5.0); Albumin/Globulin Ratio 0.7 (1.1-1.8); Alkaline Phosphatase 137 U/L (38-126); Bilirubin,Total 1.8 mg/dl (0.2-1.3); Carbon Dioxide 30 mmol/L (22.0-30.0); Globulin 3.5 g/dL (1.3-3.2); Glucose 91 mg/dl (74-100); Total Protein,Serum 5.8 g/dl (6.3-8.2)
--- NOTE | 2021-07-07 13:42 | CT_ITS ---
FINAL REPORT CLINICAL HISTORY: abdo pain, tender LLQ COMPARISON: 03/13/2020 FINDINGS: Axial CT images of the abdomen and pelvis were obtained without intravenous contrast. Coronal reformatted images were also obtained.This study was performed with techniques to keep radiation doses as low as reasonably achievable (ALARA). Individualized dose reduction techniques using automated exposure control or adjustment of mA and/or kV according to the patient's size were employed. Abdomen: There is a small pericardial effusion. The lung bases are clear. The gallbladder is surgically absent. There is an irregular liver contour consistent with cirrhosis. The spleen and pancreas have an unremarkable, unenhanced appearance. There is moderate to large ascites. There is mild anasarca. There is stable, low-attenuation mass in the left kidney measuring 2.9 cm which may represent a cyst. There is no evidence of renal stone or hydronephrosis. Pelvis: Images of the pelvis reveal no evidence of ureteral dilation or ureteral stone.No mass or abnormal fluid collection is identified. IMPRESSION: Irregular liver contour consistent with cirrhosis. Moderate to large ascites and mild anasarca. Small pericardial effusion. Reviewed, Interpreted and Dictated by Wing Pederson III, MD Transcribed by Karuna Mcarthur Authenticated by Wing Pederson III, MD on 07/07/2021 04:41:30 PM [facility]
--- NOTE | 2021-07-07 13:44 | HMH.EDGENADL ---
ED Disposition Clinical Impression: Bilateral leg pain Ascites Qualifiers: Ascites type: other type Qualified Code(s): R18.8 - Other ascites Disposition: Home, Self-Care Condition on Discharge: Good Additional Instructions: Call Dr. Bass's office tomorrow and speak with Gail to get paracentesis scheduled for Monday. [place] as needed for pain. Discuss further pain management with Dr. Bass tomorrow. Dialysis on Monday as scheduled. Additional instructions for CONTROLLED SUBSTANCES: You have been prescribed a medication that is a controlled substance. Controlled substances include pain medications known as opiates and sedative nerve medications known as benzodiazepines. Tramadol, fioricet, and gabapentin are also controlled substances. Some common opiates include: Codeine (such as Tylenol #3) Hydrocodone (Vicodin, Lortab, Lorcet, [place]) Oxycodone (Percocet, Percodan, Oxycodone, Oxy IR) Some common benzodiazepines include: Diazepam (Valium) Lorazepam (Ativan) Alprazolam (Xanax) Clonazepam (Klonopin) Oxazepam (Serax) All of these controlled substances are highly addictive and frequently abused. Misuse can and frequently does lead to addiction as well as overdose and . Medication should be stored in a locked cabinet or other secure storage unit. Do not store the medication in a motor vehicle. Short term supplies, 3 days or less, are prescribed because of the highly addictive nature of the medication. Any of the controlled substance medication NOT taken should be disposed of properly and NOT SAVED. The recommended method of disposing of unused medications is: Place the medicines in a sealable plastic bag. If the medicine is a solid, crush it or add water to dissolve it. Add something undesirable (cat litter, coffee grounds, etc.) Dispose of sealed bag in household trash Do not flush or pour unused medicines down a sink or drain. Controlled substances should not be shared, given away or sold. Because of the addictive nature and frequent abuse, these medications are sometimes stolen. These medications should be kept in a safe place where they cannot be stolen. Do not keep them in your car or purse. Lost or stolen prescriptions for controlled substances WILL NOT BE REFILLED in this emergency department, regardless of whether a police report was filed. Prescriptions: Hydrocod/Acet 5/325 mg [[place] 5/325mg tablet] 1 tab PO Q6HP PRN #10 tab PRN Reason: Pain Transmission Status: Received by [id number] Referrals: Humble Bass MD [Primary Care Provider] - - Critical Care Critical Care Time: No Attestation: On 07/07/21, the high probability of a clinically significant, sudden or life threatening deterioration of the following system(s) required my full and direct attention, intervention and personal management. The time I documented below is in addition to time spent performing reported procedures but includes the following listed in this critical care notation. Medical Decision Making - Serge Inquiry Pt receiving controlled substance: Yes Serge was queried for this patient: Yes Risks and benefits of using a controlled substance: were discussed with pt by me Vital Signs: 07/07/21 12:44 07/07/21 13:00 07/07/21 13:15 Temperature 98.6 F Temperature Source Oral Pulse Rate 98 H 98 H Pulse Rate [Right] 115 H Respiratory Rate 16 Blood Pressure 79/39 L 84/39 L Blood Pressure [Right Arm] 88/45 L Blood Pressure Mean 51 Blood Pressure Mean [Right Arm] 59 Blood Pressure Source [Right Arm] Automatic Cuff Blood Pressure Position [Right Arm] Sitting 02 Sat by Pulse Oximetry 97 100 100 Oxygen Delivery Method Room Air 07/07/21 13:30 07/07/21 13:45 07/07/21 14:00 Temperature Temperature Source Pulse Rate 88 117 H 108 H Pulse Rate [Right] Respiratory Rate 18 Blood Pressure 77/36 L 96/69 L 100/55 L Blood Pressure [Right Arm] Blood P
[2021-07-07 13:46] LABS: Troponin I < 0.01 ng/ml (0.00-0.034)
--- NOTE | 2021-07-07 13:46 | PC.NURSE ---
lab to come draw cultures and lactic
[2021-07-07 13:47] LABS: Anion Gap 7.6 mEq/L (5-15)
--- NOTE | 2021-07-07 13:48 | PC.NURSE ---
Critical lab called to Henrietta Bautista RN
--- NOTE | 2021-07-07 13:49 | PC.NURSE ---
Moved pt over to bed and b/p increased to 90's/60's. Attempted to draw lactic and cultures, unsuccessful. Notified lab
--- NOTE | 2021-07-07 13:51 | PC.NURSE ---
speaking to Dr. Brown
[2021-07-07 13:58] LABS: Coronavirus 19, PCR Not Detected (NotDetected); Influenza A, PCR Not Detected (NotDetected); Influenza B, PCR Not Detected (NotDetected)
[2021-07-07 14:04] LABS: Magnesium 1.6 mg/dl (1.6-2.3)
--- NOTE | 2021-07-07 14:07 | PC.NURSE ---
Lab at bedside
[2021-07-07 14:10] LABS: Erythrocyte Sedimentation Rate 18 mm/hr (0-30)
--- NOTE | 2021-07-07 14:13 | PC.NURSE ---
Lab advised she was able to collect lactic but was going to have someone else come down to attempt to obtain the cultures
--- NOTE | 2021-07-07 14:19 | ECG_ITS ---
APPROVED REPORT Exam: Resting ECG HR:112 bpm ECG Measurements Heart Rate 112 AXES QRSd 134 QRS 57 QT 368 T 259 QTc 434 Conclusion ATRIAL FIBRILLATION WITH RAPID VENTRICULAR RESPONSE RIGHT BUNDLE BRANCH BLOCK [120+ ms QRS DURATION, UPRIGHT V1, 40+ ms S IN I/aVL/V4/V5/V6] ANTEROSEPTAL MYOCARDIAL INFARCTION , OF INDETERMINATE AGE [40+ ms Q WAVE IN V1-V4] ABNORMAL ECG UNCONFIRMED REPORT Electronically signed by : Cornelio Mason MD 07/08/2021 16:01:20
--- NOTE | 2021-07-07 14:21 | PC.NURSE ---
Pt to CT
[2021-07-07 14:23] LABS: Procalcitonin 0.277 ng/mL (0.0-2.0)
[2021-07-07 14:32] LABS: Lactic Acid 1.9 mmol/L (0.7-2.1)
[2021-07-07 14:38] LABS: Thyroid Stimulating Hormone 0.09 uIU/mL (0.465-4.68)
--- NOTE | 2021-07-07 14:54 | PC.NURSE ---
lab still at bedside attempting to collect BC
--- NOTE | 2021-07-07 15:31 | PC.NURSE ---
[facility] she stated that CT scans had been read but weren't crossing over. She will be printing them out and bringing them to us.
--- NOTE | 2021-07-07 15:34 | XR_ITS ---
PROCEDURE INFORMATION: Exam: XR Chest Exam date and time: 07/07/2021 4:10 PM Age: 81 years old Clinical indication: Other: Low BP TECHNIQUE: Imaging protocol: XR of the chest. Views: 1 view. COMPARISON: CR XR CHEST 2V 03/13/2020 11:31 PM FINDINGS: Tubes, catheters and devices: Intravenous access port tip in SVC above the right atrium. Lungs: No lobar consolidation, pleural effusion or pulmonary edema. Pleural spaces: See Lungs finding. Heart/Mediastinum: Large heart. Bones/joints: Unremarkable. IMPRESSION: No lobar consolidation, pleural effusion or pulmonary edema.
--- NOTE | 2021-07-07 15:44 | PC.NURSE ---
Went in to update pt on POC, pt advised her legs were hurting. Notified MD no new orders given at this time. Advised pt we were still waiting on CT reports at this time. Pt had no other needs at this time.
== END 2021-07-07 17:56 | disposition home or self-care (01) ==
PROVIDERS: Emergency Provider Emergency Medicine; PCP Family Medicine
DX: R10.32 Left lower quadrant pain (principal); R18.8 Other ascites; K74.60 Unspecified cirrhosis of liver; Z99.2 Dependence on renal dialysis; N18.9 Chronic kidney disease, unspecified; E11.9 Type 2 diabetes mellitus without complications; I48.0 Paroxysmal atrial fibrillation; E03.9 Hypothyroidism, unspecified; J44.9 Chronic obstructive pulmonary disease, unspecified; F17.210 Nicotine dependence, cigarettes, uncomplicated; Z88.2 Allergy status to sulfonamides; Z79.899 Other long term (current) drug therapy
CPT/HCPCS: 71045; 74176; 80053; 83605; 83735; 84145; 84443; 84484; 85025; 85651; 86140; 87040; 93005; 99284; C9803; U0003; U0005

== ENCOUNTER 2021-07-09 08:00 | Outpatient (CLI) | payer MEDICARE, OTHER, SELFPAY ==
[2021-07-09 08:50] VITALS: BMI 31.6
--- NOTE | 2021-07-09 09:03 | US_ITS ---
FINAL REPORT CLINICAL HISTORY: ASCITES FINDINGS: ULTRASOUND-GUIDED PARACENTESIS HISTORY: Ascites. PHYSICIAN SALMON GILLNET VESSEL OPERATOR: So Guaman PA-C. ATTENDING PHYSICIAN: Dr. Pederson. TECHNIQUE: informed consent was obtained from the patient. Timeout procedure was performed prior to beginning. Appropriate pocket of fluid was localized using ultrasound. Skin was marked appropriately. The patient was prepped and draped in routine sterile fashion. Local anesthesia was achieved with 1% lidocaine. Using imaging guidance with images acquired, an 18-gauge sheath needle was directed into the peritoneal fluid. Approximately 4.3 liters of clear yellow serous fluid was aspirated. No fluid was sent for laboratory analysis. The patient tolerated the procedure well and left the department in good condition. IMPRESSION: Successful ultrasound guided therapeutic paracentesis with 4.3 liters of fluid removed. Reviewed, Interpreted and Dictated by Wing Pederson III, MD Transcribed by So Guaman PA-C Authenticated by Wing Pederson III, MD on 07/09/2021 01:07:10 PM [facility]
[2021-07-09 09:29] LABS: Creatinine Clearance Estimated 9 mL/min (50-200); Estimated Glomerular Filt Rate 7 ml/min (>60); GFR (African American) 8 ML/MIN (>60)
--- NOTE | 2021-07-09 10:11 | PC.NURSE ---
1011-notified by rad that patient only had 4300ml drawn off so no replacement today.
== END 2021-07-09 10:11 | disposition home or self-care (01) ==
LOC: RAD 10:01 → INF 10:03
PROVIDERS: PCP Family Medicine; Visit Provider Family Medicine
DX: R18.8 Other ascites (principal)
CPT/HCPCS: 49083; 82565

== ENCOUNTER → 2021-07-27 11:22 | Outpatient (CLI) | payer MEDICARE, OTHER, SELFPAY ==
--- NOTE | 2021-07-27 11:26 | XR_ITS ---
FINAL REPORT CLINICAL HISTORY: pain, fall FINDINGS: RIGHT HIP Two views of the right hip with an AP pelvis demonstrate no acute fracture or dislocation. There are mild degenerative changes. The visualized bony structures are well aligned. There are vascular calcifications. IMPRESSION: No acute bony abnormality. If symptoms are severe or persist, consider CT or MRI for further evaluation. Reviewed, Interpreted and Dictated by Wing Pederson III, MD Transcribed by Snow Wilson Authenticated by Wing Pederson III, MD on 07/27/2021 02:02:56 PM [facility][1]
== END ==
PROVIDERS: PCP Family Medicine; Visit Provider Family Medicine
DX: M25.551 Pain in right hip (principal)
CPT/HCPCS: 73502